=== PATIENT | male | born 1970 | race Two or more races ===

== ENCOUNTER 2024-07-28 07:32 | Outpatient (CLI) | payer OTHER | END 2024-07-28 07:43 | disposition home or self-care (01) | LOC: SONOGRAMA 07:32 | PROVIDERS: ATTEND Pathology Anatomic Pathology | DX: E04.9 Nontoxic goiter, unspecified (principal); R80.9 Proteinuria, unspecified; R31.9 Hematuria, unspecified; R10.84 Generalized abdominal pain ==